=== PATIENT | female | born 1940 | race Caucasian/White ===

== ENCOUNTER 2017-05-30 10:54 | Emergency (ER) | payer MEDICARE, BC ==
[2017-05-30 11:30] VITALS: BP 139/52
--- NOTE | 2017-05-30 11:52 | UC ---
Hip/Pelvis Pain - HPI Summary HPI Summary: Pt c/o left groin pain and hip that has been intermittent over the last 6 months. Pt stated that it "flared" on 05/28/17. Pt denies injury or history of hip surgery. Pt reported that pain began in left hip on tuesday morning and resolved by Tuesday. Pain radiated from left groin to left lower back. - History Of Current Complaint Stated Complaint: LEFT SIDED HIP COMPLAINT Time Seen by Provider: 05/30/17 11:09 Hx Obtained From: Patient ?: No Onset/Duration: Sudden Onset, Lasting Hours, Resolved Timing: Constant Severity Initially: Severe Severity Currently: None Pain Intensity: 1 Location: Discrete At: - left groin, Radiates To: - left lower back Character Of Pain: Dull, Aching, Spasmodic Aggravating Factor(s): Movement, Weight Bearing Alleviating Factor(s): Rest Associated Signs And Symptoms: Positive: Weakness - Allergies/Home Medications Allergies/Adverse Reactions: Allergies Allergy/AdvReac Type Severity Reaction Status Date / Time erythromycin base Allergy GI Upset Verified 05/30/17 11:09 prochlorperazine Allergy Insomnia Verified 05/30/17 11:09 Home Medications: Home Medications Acetaminophen [Acetaminophen Extra Strength] 1,000 mg PO Q6H PRN 05/30/17 [ History Confirmed 05/30/17] Azithromycin TAB* [Zithromax TAB (Z-BRIAN) 250 mg #6 tabs] 250 mg PO DAILY [History Confirmed 05/30/17] Cholecalciferol TAB* [Vitamin D TAB*] 2,000 units PO DAILY 05/30/17 [History Confirmed 05/30/17] Fenofibrate 145 mg PO BEDTIME 05/30/17 [History Confirmed 05/30/17] Losartan TAB* [Cozaar TAB*] 25 mg PO DAILY 05/30/17 [History Confirmed 05/30/17] Simvastatin [Zocor] 40 mg PO BEDTIME 05/30/17 [History Confirmed 05/30/17] clonazePAM TAB(*) [Klonopin TAB(*)] 1 tab PO QAM 05/30/17 [History Confirmed 04/17] PMH/Surg Hx/FS Hx/Imm Hx Previously Healthy: Yes Endocrine History: Dyslipidemia Cardiovascular History: Hypertension - Surgical History Surgical History: Unable to Obtain/Confirm Surgery Procedure, Year, and Place: 1943 TONSILLECTOMY,. 1982 HYSTERECTOMY, [facility]. SMALL TUMOR REMOVED FROM BACK, [facility]. 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; gallbladder 12/2015 - Family History Known Family History: Positive: Cardiac Disease - Social History Occupation: Retired Alcohol Use: None Substance Use Type: None Smoking Status (MU): Former Smoker Have You Smoked in the Last Year: No When Did the Patient Quit Smoking/Using Tobacco: ~20 yrs Review of Systems Constitutional: Negative Skin: Negative Eyes: Negative ENT: Negative Respiratory: Negative Cardiovascular: Negative Gastrointestinal: Negative Genitourinary: Negative Motor: Decreased ROM - left hip secondary to pain, resolved Neurovascular: Negative Musculoskeletal: Arthralgia, Decreased ROM - left hip/groin, Myalgia Neurological: Negative Psychological: Negative Is Patient Immunocompromised?: No All Other Systems Reviewed And Are Negative: Yes Physical Exam Triage Information Reviewed: Yes Appearance: Well-Appearing Vital Signs: Initial Vital Signs Temp 98.2 F 05/30/17 11:18 Pulse 78 05/30/17 11:18 Resp 18 05/30/17 11:18 BP 139/52 05/30/17 11:18 Pulse Ox 99 05/30/17 11:18 Vital Signs Reviewed: Yes Eye Exam: Normal ENT Exam: Normal Dental Exam: Normal Neck exam: Normal Respiratory Exam: Normal Cardiovascular Exam: Normal Abdominal Exam: Normal Abdomen Description: Positive: Nontender Musculoskeletal Exam: Normal Musculoskeletal: Positive: Strength Intact, ROM Intact Neurological Exam: Normal Psychological Exam: Normal Skin Exam: Normal Hip Injury Course/Dx - Differential Dx/Diagnosis Differential Diagnosis/HQI/PQRI: Sprain, Strain, Tenosynovitis Provider Diagnoses: muscle spasm (Iliacus and Psoa's major) resolved Discharge - Sign-Out/Discharge Documenting (check all that apply): Discharge - Discharge Plan Condition: Stable Disposition: HOME Patient Education Materials: Tendinitis (ED), Muscle Spasm (ED) Referrals: Jose Loyola MD [Medical Doctor] - If Needed Baldomero Falcon MD [Primary Care Provider] - Additional Instructions: Please follow up with your PCP or return to clinic as needed.We have provided a referral to an orthopedic provider for you to follow up with as needed. - Billing Disposition and Condition Condition: STABLE Disposition: HOME
== END 2017-05-30 12:04 | disposition home or self-care (01) ==
LOC: UCCORT 10:54
DX: M62.838 Other muscle spasm (principal); Z88.1 Allergy status to other antibiotic agents; Z88.8 Allergy status to other drugs, medicaments and biological substances; I10 Essential (primary) hypertension; E78.5 Hyperlipidemia, unspecified; Z87.891 Personal history of nicotine dependence
CPT/HCPCS: 99202; G0463